=== PATIENT | male | born 1945 | race Caucasian/White ===

== ENCOUNTER 2018-03-18 07:48 | Inpatient (IN) ==
[2018-02-17 12:08] LABS: Basophils # (auto) 0.04 K/uL (0-0.2); Basophils % (auto) 0.4 %; Eosinophils # (auto) 0.32 K/uL (0-0.5); Eosinophils % (auto) 3.1 %; Hematocrit (blood only) 41.1 % (42-52); Hemoglobin 14.6 g/dL (14.0-18.0); Immature Granulocytes # (auto) 0.05 K/uL (0.00-0.02); Immature Granulocytes % (auto) 0.5 %; Lymphocytes # (auto) 1.49 K/uL (1.2-3.4); Lymphocytes % (auto) 14.6 %; Mean Corpuscular Hgb Conc 35.5 g/dL (32-36); Mean Corpuscular Volume 86.5 fL (80-100); Monocytes # (auto) 0.91 K/uL (0.11-0.59); Monocytes % (auto) 8.9 %; Neutrophils # (auto) 7.43 K/uL (1.4-6.5); Neutrophils % (auto) 72.5 %; Platelet Count 213 K/uL (130-400); RDW Coefficient of Variation 13.2 % (11.5-14.5); RDW Standard Deviation 41.5 fL (36.4-46.3); Red Blood Count 4.75 M/uL (4.7-6.1); White Blood Count 10.24 K/uL (4.8-10.8)
[2018-02-17 12:24] LABS: INR 1.1 (0.9-1.1); Partial Thromboplastin Time 25.2 Seconds (21.0-31.0); Prothrombin Time 11.4 Seconds (9.0-12.0)
[2018-03-19 06:14] LABS: Hemoglobin 11.3 g/dL (14.0-18.0); Mean Corpuscular Hgb Conc 35.3 g/dL (32-36); Mean Corpuscular Volume 85.8 fL (80-100); Mean Platelet Volume 9.6 fL (7.4-10.4); Platelet Count 180 K/uL (130-400); RDW Coefficient of Variation 12.8 % (11.5-14.5); RDW Standard Deviation 39.9 fL (36.4-46.3); Red Blood Count 3.73 M/uL (4.7-6.1); White Blood Count 13.03 K/uL (4.8-10.8)
[2018-03-19 06:19] LABS: Estimated Average Glucose 151 mg/dl
[2018-03-19 06:50] LABS: BUN Creatinine Ratio 18.2 (10-20); Calcium 8.2 mg/dl (8.5-10.1); Creatinine Clr Calc Pharmacy 55.9 ml/min; Est GFR (African American) 68.5; Est GFR (Non-African American) 59.1; Potassium 3.5 mmol/L (3.5-5.1)
== END 2018-03-20 10:14 | disposition home health service (06) ==
LOC: ASU 07:48 → 3E 13:03

== ENCOUNTER 2018-06-20 08:11 | Inpatient (IN) ==
--- NOTE | 2018-05-29 14:02 | Anesthesiology Consultation ---
Date of Service May 29, 2018 Assessment & Plan (1) Encounter for pre-operative examination: Chart Review Chart Review: Acceptable Risk for Surgery and Patient NOT seen in Pre Admission Testing Consults Requested none History Surgery Operation Date: 06/20/18 12:30 Proposed Procedures p Left Total Knee Arthroplasty - Rm Madden MD Height/Weight Height: 1.75 m Weight: 84.8 kg Allergies Allergy/AdvReac Type Severity Reaction Status Date / Time Penicillins Allergy SYNCOPAL Verified 05/28/18 15:10 EPISODE, OCCURED A CHILD Medications Home Medications Medication Instructions Recorded Confirmed Last Taken albuterol sulfate 2 puff INHALATION Q6H PRN 02/10/18 05/28/18 03/15/18 12:00 atenolol 50 mg PO QAM 02/10/18 05/28/18 03/18/18 06:00 atorvastatin [Lipitor] 10 mg PO QAM 02/10/18 05/28/18 03/18/18 06:00 fluticasone propion-salmeterol 1 inh INHALATION HS 02/10/18 05/28/18 03/17/18 19:30 [Advair Diskus] metformin 500 mg PO BID 02/10/18 05/28/18 03/17/18 19:30 potassium chloride 10 meq PO QAM 02/10/18 05/28/18 03/17/18 06:00 lutein 20 mg PO QAM 02/17/18 05/28/18 02/17/18 06:00 losartan-hydrochlorothiazide 1 tab PO DAILY 03/18/18 05/28/18 Unknown Past Medical History Medical History Asthma Diabetes mellitus, type 2 History of prostate cancer S/P PROSTATECTOMY IN 2013 Hyperlipidemia Hypertension Osteoarthritis Past Surgical History Surgical History History of colonoscopy History of lung biopsy History of prostatectomy 2013 History of total knee replacement RIGHT 03/18/18: SAB + PNB without apparent complications Past Anesthesia History No Hx of Anesthesia Complications and No Family Hx of Anesthesia Complications History of PONV No Motion Sickness Screening History of Motion Sickness: No Social History Smoking Status: Never smoker Do You Dip or Chew Tobacco: No Hx Alcohol Use: No Alcohol Intake Frequency Comment: 0 Hx Substance Use: No substance use type: does not use Exercise / Class Metabolic Activity II 4-5 Yardwork/Stairs/Walk up hill Testing Electrocardiogram Date: 02/17/18 Findings: + NSR @ (71 bpm) Chest X-Ray Date: 02/17/18 Findings: + NAD IMPRESSION: 1. No acute cardiopulmonary findings. 2. Bandlike density projecting over the upper heart on lateral projection which favors atelectasis or scar. Laboratory Results Laboratory Tests 03/19/18 05/22/18 05/22/18 06:00 10:57 10:57 WBC 11.39 H Hgb 13.4 L Hct 38.0 L Plt Count 241 PT 10.9 INR 1.1 APTT 24.3 Sodium Potassium Chloride Carbon Dioxide BUN Creatinine Glucose Hemoglobin A1c 6.9 H 05/22/18 10:57 WBC Hgb Hct Plt Count PT INR APTT Sodium 139 Potassium 4.2 Chloride 106 Carbon Dioxide 26 BUN 46 H Creatinine 2.27 H Glucose 252 H Hemoglobin A1c
--- NOTE | 2018-06-14 12:36 | History and Physical Report ---
DATE OF ADMISSION: 06/20/2018 CHIEF COMPLAINT: Left knee pain, discomfort and stiffness. HISTORY OF PRESENT ILLNESS: The patient is a 72-year-old gentleman from [place], who is now about 3 months out from right knee replacement, presents for surgical treatment of his left knee. He has got a long history of knee problems. He has been through extensive conservative treatment. His knee has been bothering over a total of years. He has had his right knee fixed just about 3 months ago and has done well from this. He continues to be limited by his left knee pain. He limps on this left side. The more he walks, the more it hurts. It causes nighttime pain. He has failed all conservative care and would like to proceed with left knee replacement. PAST MEDICAL HISTORY: 1. Asthma. 2. Diabetes x4 years. 3. Arthritis. 4. Low back pain/sciatica. 5. Prostate cancer. PAST SURGICAL HISTORY: Previous surgeries include: 1. Prostate surgery. 2. Left knee replacement 03/18/2018. ALLERGIES: PENICILLIN, REACTIONS UNKNOWN. CURRENT MEDICINES: Include: 1. ProAir. 2. Advair 4 puffs per day. 3. Baby aspirin 81 mg. 4. Lipitor 10 mg. 5. Losartan once a day. 6. Metformin 500 mg twice a day. 7. Potassium chloride 10 mEq a day. 8. Atenolol 50 mg. 9. Aleve. 10. Lisinopril/hydrochlorothiazide 20/12.5 once a day. SOCIAL HISTORY: A 72-year-old male patient from [place]. He is . Does not smoke. FAMILY HISTORY: Noncontributory. REVIEW OF SYSTEMS: Significant for fairly well-controlled diabetes. Denies any chest pain or shortness of breath. No signs of DVT or PE. No known bleeding problems. PHYSICAL EXAMINATION: GENERAL: Shows a pleasant, middle-aged male. Looks to be in good health. HEENT: Benign. NECK: Supple. No lymphadenopathy. LUNGS: Clear to auscultation. HEART: Regular rate and rhythm. ABDOMEN: Soft, nontender, nondistended. EXTREMITIES: Grossly neurovascularly intact except as follows: Examination of the left knee reveals patient ambulates independently. He does have slight varus alignment to his left knee. He has got tenderness over the medial joint line. Small knee effusion. Range of motion about 10 degrees short of full extension to 110 degrees of flexion. He does have varus thrust with weightbearing. He is neurologically intact. Examination of the right knee reveals a well-healed incision. Range of motion is 0-120. Good straight leg raise. X-RAYS: X-rays of the left knee reviewed. It shows advanced left knee medial compartment DJD. He has got complete loss of his medial joint space. He has got some tibial femoral subluxation. He has got subchondral sclerosis. He does have some lateral compartment disease as well. ASSESSMENT: A 72-year-old gentleman 3 months out from right knee replaced with advanced left knee degenerative joint disease. He has done well from the right side and would like to have his left knee replaced. PLAN: We will take him to the operating room and do a left total knee replacement. The risks and benefits of this procedure were explained to the patient include but not limited to DVT, PE, , infection, neurological injury, vascular injury, bleeding problem, pain, limited range of motion, stiffness, failure to relieve symptoms, incomplete relief of symptoms, need for further surgery in future, etc. The patient understands and desires to proceed. Informed consent was obtained. As far as pain control, he did not do well in the oxycodone and Dilaudid worked better for him, we will try and use this in the hospital. He knows to hold his Metformin and lisinopril the morning of surgery. He is planning to be discharged to home using the home health program.
[~2018-06-20 08:11] MED LIST: ACETAMINOPHEN 500 MG TAB PO SCH; BUPIVACAINE 0.5 % 5 MG/1 ML PF 10ML VIAL ONE; BUPIVACAINE LIPOSOME/PF 266 MG, BUPIVACAINE/EPINEPHRINE 50 ML, SODIUM CHLORIDE 0.9% 30 ... INFIL SCH; CEFAZOLIN 2000MG 2,000 MG/15 ML SYR IV SCH; FAMOTIDINE 20 MG TAB PO SCH; GABAPENTIN 300 MG PO SCH; LR 15ML/HR IV SCH; LR 60ML/HR IV SCH; METOCLOPRAMIDE HCL 10 MG TABLET PO SCH; ROPIVACAINE 0.5% 5 MG/ML 30 ML VIAL ONE; SODIUM CHLORIDE 0.9% 1000ML IV SCH; TRANEXAMIC ACID 1,000 MG **IV Intra-op IV SCH
--- NOTE | 2018-06-20 08:54 | History & Physical Bridge Note ---
Date of Service June 20, 2018 History & Physical Bridge Note I have examined the patient, reviewed the History & Physical and in the interval since the performance of the History & Physical I have noted the following changes of clinical significance: no changes noted
[2018-06-20] MEDS ORDERED: SODIUM CHLORIDE 0.9% PF 50 ML VIAL ONE (10:22)
[2018-06-20] MEDS ORDERED: BUPIVACAINE LIPOSOME 1.3% 266 MG/20 ML VIAL ONE (10:22)
[2018-06-20] MEDS ORDERED: BACITRACIN INJ 50,000 UNIT VIAL ONE (10:23)
[2018-06-20] MEDS ORDERED: MIDAZOLAM HCL 1 MG/ML 2ML VIAL ONE (10:26)
[2018-06-20] MEDS ORDERED: EPINEPHrine INJ 1 MG/ML AMP ONE (10:29)
[2018-06-20] MEDS ORDERED: BUPIVACAINE 0.25% 30 ML VIAL ONE (10:29)
[2018-06-20] MEDS ORDERED: ONDANSETRON INJ 2 MG/ML 2 ML VIAL ONE (10:50)
[2018-06-20] MEDS ORDERED: PROPOFOL IV EMULSION 10 MG/ML 20 ML VIAL IV ONE (10:50)
[2018-06-20] MEDS ORDERED: fentaNYL citrate 100 MCG/2 ML VIAL ONE ×3 (10:50→11:01)
[2018-06-20] MEDS ORDERED: LIDOCAINE HCL 2% 2 ML VIAL/AMP(20MG/ML) INFIL ONE (10:50)
[2018-06-20] MEDS ORDERED: ePHEDrine sulfate 50 MG/ML AMP IV PRN (10:51)
[2018-06-20] MEDS ORDERED: ATROPINE SULFATE 0.1 MG/ML 10ML SYR IV PRN (10:51)
[2018-06-20] MEDS ORDERED: PHENYLEPHRINE 100MCG/ML 5ML SYR ONE (12:09)
--- NOTE | 2018-06-20 12:16 | Post Operative Brief Note ---
Immediate Post Op Note v1 Date of Surgery June 20, 2018 Pre & Post Diagnosis Operation Date: 06/20/18 10:40 Pre-Op Diagnosis: Left Knee Degenerative Joint Disease, Knee Pain Post-Op Diagnosis: Left Knee Degenerative Joint Disease, Knee Pain Procedure Operation Date: 06/20/18 10:40 Actual Procedures p Left Total Knee Arthroplasty(Left) - Rm Madden MD Surgeon Rm Madden MD Rum Processing Operator Pb, PAC Estimated Blood Loss 50 Findings Consistent with Post-Op Diagnosis Fluids 1600 cc Specimens Left Knee Drains Daniels Catheter Anesthesia Type Spinal MAC Complications none Disposition Accompanied Patient To Recovery: No Disposition: Recovery Room
--- NOTE | 2018-06-20 13:32 | Anesthesiology Progress Note ---
Date of Service June 20, 2018 Anesthesia Post Procedure Vital Signs Vital Signs: Temp Pulse Pulse Resp BP BP Pulse Ox 06/20/18 13:25 67 15 98/68 L 98 06/20/18 13:15 36.7 C 73 16 104/64 99 06/20/18 13:05 72 15 102/62 97 06/20/18 13:00 72 12 100/67 98 06/20/18 12:55 72 18 101/67 99 06/20/18 12:51 74 23 99/67 L 99 06/20/18 12:50 70 16 100 06/20/18 12:45 69 13 100/66 99 06/20/18 12:40 71 13 98/68 L 100 06/20/18 12:35 69 22 105/68 100 06/20/18 12:31 70 16 92/68 L 100 06/20/18 12:30 63 22 99 06/20/18 12:25 73 17 102/65 100 06/20/18 12:23 36.2 C L 72 73 24 96/64 L 96/64 L 100 06/20/18 12:22 76 18 100 06/20/18 08:39 36.8 C 82 18 136/83 97 Notes Mental Status: alert / awake / arousable and participated in evaluation Patient Amnestic to Procedure: Yes Nausea / Vomiting: adequately controlled Pain: adequately controlled Airway Patency, RR, SpO2: stable & adequate BP & HR: stable & adequate Hydration State: stable & adequate Neuraxial Anesthesia: was administered and sensory block is resolving Anesthetic Complications: no major complications apparent
--- NOTE | 2018-06-20 13:33 | XRay Report ---
XR knee LT 2V routine CLINICAL HISTORY: Surgical Post Op COMPARISON: Knee radiographs January 02, 2018. FINDINGS: Alignment of the total left knee arthroplasty is anatomic. There is no fracture or unexpec eleazar radiopaque foreign body. There are skin zach. IMPRESSION: Expected findings following total left knee arthroplasty. Electronically signed by: Saad Jacobson M.D. 06/20/2018 1:32 PM
[2018-06-20] MEDS ORDERED: METOCLOPRAMIDE HCL INJ 5 MG/ML 2 ML VIAL IV PRN (13:53)
[2018-06-20] MEDS ORDERED: SODIUM CHLORIDE 0.9% 1000ML 1,000 ML IV SCH (13:53)
[2018-06-20] MEDS ORDERED: GLUCOSE 10 TABS/TUBE PO PRN (13:53)
[2018-06-20] MEDS ORDERED: ALBUTEROL HFA 8 GM INHALER INH PRN (13:53)
[2018-06-20] MEDS ORDERED: DEXTROSE 50% 50 ML SYRINGE IV PRN (13:53)
[2018-06-20] MEDS ORDERED: PHARMACY GLYCEMIC MGMT CONSULT STA (13:53)
[2018-06-20] MEDS ORDERED: GLUCAGON FOR INJ 1 MG VIAL SQ PRN (13:53)
[2018-06-20] MEDS ORDERED: GLUCOSE 40% GEL 15 GM TUBE PO PRN (13:53)
[2018-06-20] MEDS ORDERED: TAMSULOSIN HCL 0.4 MG CAP PO PRN (13:53)
[2018-06-20] MEDS ORDERED: MAGNESIUM HYDROXIDE SUSP 30 ML UDC PO PRN (13:53)
[2018-06-20] MEDS ORDERED: ONDANSETRON INJ 2 MG/ML 2 ML VIAL IV PRN (13:53)
[2018-06-20] MEDS ORDERED: NALOXONE HCL 0.4 MG/1 ML VIAL/CARP IV PRN (13:53)
[2018-06-20] MEDS ORDERED: CARBOHYDRATES FOR HYPOGLYCEMIA PO PRN (13:53)
[2018-06-20] MEDS ORDERED: HYDROmorphone INJ 0.5 MG/0.5 ML SYR IV PRN (13:53)
[2018-06-20] MEDS ORDERED: ALUMINUM/MAGNESIUM SUSP 30 ML UDC PO PRN (13:53)
[2018-06-20] MEDS ORDERED: BISACODYL 10 MG SUPP PR PRN (13:53)
[2018-06-20] MEDS: ACETAMINOPHEN 500 MG TAB PO SCH ×2 (14:21→21:35)
[2018-06-20] MEDS ORDERED: PHARMACY GLYCEMIC MGMT CONSULT PRN (14:27)
--- NOTE | 2018-06-20 14:47 | Pharmacy Report ---
Glycemic Control Consultation - Date of Service June 20, 2018 - Scope Scope: Glycemic Pharmacist consulted by Dr Madden on 06-20-18 for glycemic control and to write orders per [facility] inpatient glycemic control protocol - Objective Weight: 83.461 kg Accuchecks BSG (last 24hrs): 06/20/18 06/20/18 08:48 12:27 POC Glucose 164 H 121 H - Recent Pertinent Medications Outpatient Anti-diabetic Regimen: * metformin 500 mg bidm * A1c = 6.9 % [1-16-19] Risk Factors for Insulin Resistance: * Steroids: none * Recent Surgery: POD 0 * Diet: T2DM - Assessment & Plan Assessment & Plan: ASSESSMENT: * 72 year old male now s/p left TKA - PMHx significant for type 2 diabetes, asthma, arthritis, prostate cancer * Patient POD 0, now starting diet postop, no steroids received in OR * Will utilize basal/bolus dosing postop for glycemic management PLAN FOR INPATIENT GLYCEMIC CONTROL: * Pt is maintained on oral antidiabetic agents as an outpatient * Oral agents are not recommended for inpatient use d/t drug interactions, changing PO intake, and difficulty titrating for acute hyper/hypoglycemia. ADA recommends re-initiating outpatient oral agents 1-2 days prior to discharge if/when appropriate if they were held on admission. * Will hold oral agents for admission and utilize SQ basal bolus insulin regimen which is the recommended regimen for inpatient glycemic control. * Will initiate weight based insulin dosing for insulin arsalan patient and titrate based on BSG trends. * Basal insulin * Lantus HS with scale -For BSG < 180 : no lantus -For BSG >180 : lantus 10 units (chose conservative dose since no steroids given) * Bolus insulin - add one overnight check * NovoLog per scale ACHS or Q6hrs while NPO * Goal Range: Low 120 mg/dL - High 160 mg/dL * Correction Factor: 30 mg/dL/unit * Nutritional / Prandial insulin per carb ratio of 1 unit per 12 grams CHO c onsumed * Please note that the plan above was derived based on current level of insulin resistance and hospital stress. These recommendations are appropriate for inpatient admission only. Plan of care upon discharge will need to be reassessed to avoid potential outpatient hypo/hyperglycemia. Thank you.
[2018-06-20] MEDS: KETOROLAC TROMETHAMINE 15 MG/ML VIAL IV SCH ×2 (15:31→22:15)
--- NOTE | 2018-06-20 15:31 | Progress Note ---
DATE: 06/20/2018 SUBJECTIVE: 72-year-old gentleman postop from a left knee replacement. He is doing well. Does not have any sensation or function in his leg yet. No chest pain or shortness of breath. Not feeling dizzy or lightheaded. OBJECTIVE: VITAL SIGNS: Temperature 36.5. Vital signs stable. PHYSICAL EXAMINATION: GENERAL: Reveals a pleasant, middle-aged male. He is sitting up in bed and talking to his . He looks comfortable. LUNGS: Clear to auscultation. HEART: Regular rate and rhythm. ABDOMEN: Soft, nontender, nondistended. EXTREMITIES: Grossly neurovascularly intact except as follows: Examination of the left leg reveals the leg to be well aligned. Dressing is clean, dry, and intact. He has got good distal pulse with pink toes. He has no significant sensory or motor function in the leg yet. X-RAYS: X-ray of the left knee from recovery room were reviewed. It shows a left cemented posterior right total knee arthroplasty. Components look to be in good position. No signs of problems. ASSESSMENT: 72-year-old gentleman postop from a left knee replacement. He is doing well. Block is still in effect. He is otherwise vascularly intact. PLAN: 1. DVT prophylaxis including thigh-high TEDs, SCDs, and aspirin twice a day. 2. PT/OT. Weight bear as tolerated. Left total knee protocol. 3. Pain control, doing well with current pain regimen. We are going to use Dilaudid for pain control as he did better with that after his last knee replacement. We will also use Tylenol and some low dose Toradol. We will have to keep an eye on his renal function. 4. IV antibiotics x24 hours. 5. Disposition: Plan to discharge to home with some home health once adequately recovered.
[2018-06-20] MEDS: HYDROmorphone HCL 2 MG TAB PO PRN (17:10)
[2018-06-20] MEDS: INSULIN ASPART 100 UNITS/ML 3 ML PEN SC SCH ×2 (18:01→22:07)
[2018-06-20] MEDS: ASCORBIC ACID 500 MG TAB PO SCH (18:01)
[2018-06-20] MEDS: FERROUS GLUCONATE 324 MG TAB PO SCH (18:01)
[2018-06-20] MEDS ORDERED: TRANEXAMIC ACID 1,000 MG in 0.9 % SODIUM CHLORIDE 100 ML IV SCH (18:30)
[2018-06-20] MEDS: CEFAZOLIN 2000MG 2,000 MG/15 ML SYR IV SCH (19:01)
[2018-06-20] MEDS: FLUTICASONE/SALMETEROL 250/50 (ADVAIR) 14 PUFF/1 INHALER INH SCH (20:39)
[2018-06-20] MEDS: TAPENTADOL HCL ER 50 MG TABCR PO SCH (20:39)
[2018-06-20] MEDS: DOCUSATE SODIUM 100 MG CAP PO SCH (20:40)
[2018-06-20] MEDS: SENNA 8.6 MG TAB PO SCH (20:40)
[2018-06-20] MEDS: ASPIRIN 81 MG ECTAB PO SCH (20:40)
[2018-06-20] MEDS ORDERED: LANTUS PER UNIT CHARGE SQ SCH (21:00)
--- NOTE | 2018-06-20 22:18 | Operative Report ---
DATE OF OPERATION: 06/20/2018 SURGEON: Rm Madden MD REBEAMER: NENITA Cope PREOPERATIVE DIAGNOSIS: Left knee degenerative joint disease. POSTOPERATIVE DIAGNOSIS: Left knee degenerative joint disease. PROCEDURE PERFORMED: Left cemented posterior stabilized total knee arthroplasty. COMPLICATIONS: None. ESTIMATED BLOOD LOSS: 50 mL. FLUID REPLACEMENT: 1600 mL of crystalloid fluid replacement. TOURNIQUET TIME: 56 minutes at 300 mmHg. ANESTHESIA: Spinal with adductor canal block. DRAINS: None. SPECIMENS: Left knee sent for pathology. OPERATIVE INDICATIONS: The patient is a 72-year-old fairly active gentleman who has had a long history of bilateral knee pain and discomfort. He has been through extensive conservative treatment in the past. X-rays show advanced DJD. He underwent a right knee replacement 3 months ago, has done well from this. He continued to be limited by his left knee pain. He elected to proceed with total knee arthroplasty. OPERATIVE FINDINGS: Operative findings revealed advanced left knee DJD. He had extensive grade 4 [id number] disease with eburnation of the entire medial compartment. He had osteophytes primarily in the medial compartment. He had a fixed varus deformity to his knee and a 10 degree flexion contracture with large knee joint effusion. OPERATIVE IMPLANTS: Operative implants consisted of: 1. Biomet Vanguard size 67.5 left posterior stabilized femoral component. 2. A Biomet size 75 tibial tray. 3. A 10 mm posterior stabilized polyethylene insert. 4. A 31 x 8 all poly patella. OPERATIVE PROCEDURE: The patient taken to the operating room, identified and placed on the operative table in supine position. All contact areas were appropriately padded. IV antibiotics were provided by anesthesia team. A spinal anesthetic and adductor canal block had been provided in the holding area. Daniels catheter was placed in sterile fashion. Left tourniquet was then placed and left lower extremity was then prepped and draped in usual sterile fashion. Left leg was elevated and exsanguinated with Esmarch and tourniquet placed at 300 mmHg. An anterior approach to the left knee was then performed through a longitudinal incision centered over the patella. Sharp dissection was carried through subcutaneous tissue down to the level of the extensor mechanism. Medial parapatellar arthrotomy incision was made. Some subperiosteal dissection was carried out medially. The fat pad resected from beneath the patellar tendon. The lateral patellofemoral ligament was released. The patella was everted and knee was flexed. The osteophytes were taken off the distal femur. The ACL and PCL were then released from the distal femur and the tibia subluxated anteriorly. The external tibial alignment jig was then placed in the anterior face of the tibia and adjusted about 16 mm medially. Proximal tibial cut was made to remove essentially and flushed with the very most deficient aspect of the medial tibial plateau. I did take a fairly large piece off laterally. Some osteophytes were removed medial and posteromedially. Tibia sized to a size 75. Attention was then drawn to the femur. The distal femur was entered with a sharp drill bit. Intramedullary canal was suctioned. The left 6-degree valgus cutting guide was placed. Distal femoral cutting block was pinned in place. Distal femoral cut was made to take an additional 3 mm bone off distal femur. The femur was then sized to a size 67.5. We downsized this just slightly. The AP cutting block was pinned parallel to the epicondylar axis, which was 4 degrees of external rotation. The anterior cut, anterior chamfer cut, posterior cut, posterior chamfer cuts were made. Box cutting guide was placed it just slightly lateral, and the box cut was made. The knee was flexed. The remnants of medial and lateral menisci were excised. The osteophytes were taken off the posterior aspect of the femur. Trial femoral component was placed. Tibial tray was pinned in maximum external rotation and the drill and stem punch were used to create defect in the tibia for the tibial tray. The knee was then trialed and a 10 mm insert fit most appropriately. Attention was then drawn to patella. The patella was cleaned of all soft tissues. Patella thickness measured 25 mm in thickness was cut down to 15. It was sized to a size 31 patella. Lug holes were drilled for a 31 patella. Lateral osteophyte was removed. Patella button was placed. Knee was taken through range of motion, patella tracked nicely with no thumbs test. Attention was then drawn toward placement of the permanent components. All trial components were removed. Bone plug was placed into the distal femur to limit blood loss. A double batch of Palacos G cement was mixed. A Biomet Vanguard size 67.5 posterior stabilized femoral component, size 75 tibial tray, 10 mm posterior stabilized polyethylene insert, and a 31 x 8 all poly patella then cemented in place. Knee was brought out into full extension until cement hardened. A final cement check was then performed. Pericapsular tissues were injected with a total of 100 mL of a combination of 20 mL of Exparel, 30 mL of normal saline, 50 mL of 0.25% Marcaine with epinephrine. The patient did receive 1 gram of tranexamic acid. The tourniquet was then let down for final tourniquet time of 56 minutes. Hemostasis was assured with use of electrocautery. The extensor mechanism was then closed with a combination of #1 PDS suture and #1 Vicryl suture in a smhwow-ds-tkeor fashion. Extensor mechanism was checked and found to be intact. The subcutaneous tissues were then closed with #2 Dexon suture in a buried interrupted fashion. Skin was closed with skin zach. Leg was then cleaned and dried and a sterile dressing of Xeroform, 4 x 4's, sterile cast and Vic bandage were applied. The patient transferred to the recovery room in stable condition. The patient tolerated the procedure well with no complication. All needle and sponge counts were correct at the end of the operation. I attest to the content of the Intraoperative Record and any orders documented therein. Any exceptions are noted below. CLINT
[2018-06-21] MEDS ORDERED: INSULIN ASPART 100 UNITS/ML 3 ML PEN SC SCH
[2018-06-21] MEDS: KETOROLAC TROMETHAMINE 15 MG/ML VIAL IV SCH (02:58)
[2018-06-21] MEDS: CEFAZOLIN 2000MG 2,000 MG/15 ML SYR IV SCH (02:58)
[2018-06-21] MEDS: ACETAMINOPHEN 500 MG TAB PO SCH ×3 (06:10→21:16)
[2018-06-21 06:36] LABS: Hematocrit (blood only) 31.9 % (42-52); Hemoglobin 11.3 g/dL (14.0-18.0); Mean Corpuscular Hgb Conc 35.4 g/dL (32-36); Mean Corpuscular Volume 83.7 fL (80-100); Mean Platelet Volume 9.1 fL (7.4-10.4); Platelet Count 156 K/uL (130-400); RDW Coefficient of Variation 12.9 % (11.5-14.5); Red Blood Count 3.81 M/uL (4.7-6.1); White Blood Count 9.62 K/uL (4.8-10.8)
[2018-06-21 07:03] LABS: BUN Creatinine Ratio 17.6 (10-20); Calcium 8.6 mg/dl (8.5-10.1); Creatinine Clr Calc Pharmacy 42.4 ml/min; Est GFR (African American) 49.1; Est GFR (Non-African American) 42.4; Potassium 3.3 mmol/L (3.5-5.1)
[2018-06-21] MEDS: HYDROmorphone HCL 2 MG TAB PO PRN ×4 (07:48→21:13)
[2018-06-21] MEDS ORDERED: POTASSIUM CHLORIDE 20 MEQ TABCR PO ONE ×2 (08:24→18:26)
--- NOTE | 2018-06-21 08:44 | Progress Note ---
DATE: 06/21/2018 SUBJECTIVE: A 72-year-old gentleman postop day 1 from a left knee replacement. Had a pretty good night. Slept well. Pain was controlled. Having a little bit more pain this morning. No chest pain or shortness of breath. Not feeling dizzy or lightheaded. OBJECTIVE: VITAL SIGNS: Temperature 36.9. Vital signs stable. GENERAL: Physical examination shows a pleasant, middle-aged male. He is sitting up in bed, looks comfortable. EXTREMITIES: Examination of the left leg reveals the dressing to be clean, dry, and intact. He can dorsiflex and plantarflex his foot appropriately. He is neurologically intact. LABORATORY DATA: Hemoglobin 11.3. Hematocrit 31.9. Electrolytes show increased creatinine of 1.62. Potassium is low at 3.3. ASSESSMENT: A 72-year-old gentleman postop day 1 from a left knee replacement, doing pretty well. Pain is controlled. Creatinine is bumped up and he has had some of the kidney issues in the past. PLAN: 1. DVT prophylaxis including thigh-high TEDs, SCDs, and aspirin twice a day. 2. PT/OT. Weight bear as tolerated. Left total knee protocol. 3. Pain control, doing pretty well with current pain regimen. He is doing better with he prefers Dilaudid. We are going to continue Tylenol, but we are going to stop the Toradol due to his creatinine. We will supplement his potassium. 4. Disposition: Plan to discharge to home with home health once adequately recovered.
[2018-06-21] MEDS ORDERED: NON-FORMULARY MEDICATION (Lutein 20 MG) PO SCH (09:00)
[2018-06-21] MEDS: ATORVASTATIN 10 MG TAB PO SCH (09:19)
[2018-06-21] MEDS: ATENOLOL 50 MG TABLET PO SCH (09:19)
[2018-06-21] MEDS: DOCUSATE SODIUM 100 MG CAP PO SCH ×2 (09:19→21:15)
[2018-06-21] MEDS: TAPENTADOL HCL ER 50 MG TABCR PO SCH ×2 (09:19→21:24)
[2018-06-21] MEDS: ASCORBIC ACID 500 MG TAB PO SCH ×2 (09:20→18:27)
[2018-06-21] MEDS: ASPIRIN 81 MG ECTAB PO SCH ×2 (09:20→21:15)
[2018-06-21] MEDS: POTASSIUM CHLORIDE 10 MEQ TABCR PO SCH (09:20)
[2018-06-21] MEDS: LOSARTAN/HCTZ 50/12.5MG TAB PO SCH (09:20)
[2018-06-21] MEDS: FERROUS GLUCONATE 324 MG TAB PO SCH ×2 (09:20→18:27)
[2018-06-21] MEDS: MULTIVITAMIN TAB PO SCH (09:20)
[2018-06-21] MEDS: INSULIN ASPART 100 UNITS/ML 3 ML PEN SC SCH ×4 (09:21→21:20)
--- NOTE | 2018-06-21 10:09 | Anesthesiology Progress Note ---
Date of Service June 21, 2018 Anesthesia Post Procedure Vital Signs Vital Signs: Temp Pulse Pulse Pulse Resp BP BP 06/21/18 07:06 36.9 C 68 19 132/83 06/21/18 03:00 36.9 C 73 14 136/78 06/20/18 23:51 36.8 C 69 14 114/71 06/20/18 19:50 36.9 C 71 18 121/77 06/20/18 16:45 36.6 C 68 18 95/62 L 06/20/18 15:48 36.7 C 70 18 113/69 06/20/18 15:30 06/20/18 14:49 36.5 C 72 17 109/65 06/20/18 14:16 70 17 106/69 06/20/18 13:45 37 C 72 16 112/71 06/20/18 13:35 67 15 105/61 06/20/18 13:25 67 15 98/68 L 06/20/18 13:15 36.7 C 73 16 104/64 06/20/18 13:05 72 15 102/62 06/20/18 13:00 72 12 100/67 06/20/18 12:55 72 18 101/67 06/20/18 12:51 74 23 99/67 L 06/20/18 12:50 70 16 06/20/18 12:45 69 13 100/66 06/20/18 12:40 71 13 98/68 L 06/20/18 12:35 69 22 105/68 06/20/18 12:31 70 16 92/68 L 06/20/18 12:30 63 22 06/20/18 12:25 73 17 102/65 06/20/18 12:23 36.2 C L 72 73 24 96/64 L 96/64 L 06/20/18 12:22 76 18 Pulse Ox 06/21/18 07:06 95 06/21/18 03:00 98 06/20/18 23:51 97 06/20/18 19:50 96 06/20/18 16:45 95 06/20/18 15:48 96 06/20/18 15:30 97 06/20/18 14:49 97 06/20/18 14:16 97 06/20/18 13:45 99 06/20/18 13:35 99 06/20/18 13:25 98 06/20/18 13:15 99 06/20/18 13:05 97 06/20/18 13:00 98 06/20/18 12:55 99 06/20/18 12:51 99 06/20/18 12:50 100 06/20/18 12:45 99 06/20/18 12:40 100 06/20/18 12:35 100 06/20/18 12:31 100 06/20/18 12:30 99 06/20/18 12:25 100 06/20/18 12:23 100 06/20/18 12:22 100 Pain Intensity Left Knee: Pain Intensity: 7 Notes Mental Status: alert / awake / arousable and participated in evaluation Nausea / Vomiting: adequately controlled Pain: adequately controlled Airway Patency, RR, SpO2: stable & adequate BP & HR: stable & adequate Hydration State: stable & adequate
[2018-06-21] MEDS ORDERED: INSULIN GLARGINE SOLOSTAR 100 UNITS/ML 3 ML PEN SC ONE (16:45)
[2018-06-21] MEDS ORDERED: INSULIN GLARGINE SOLOSTAR 100 UNITS/ML 3 ML PEN SC SCH (21:00)
[2018-06-21] MEDS ORDERED: LANTUS PER UNIT CHARGE SQ SCH (21:00)
[2018-06-21] MEDS: FLUTICASONE/SALMETEROL 250/50 (ADVAIR) 14 PUFF/1 INHALER INH SCH (21:14)
[2018-06-21] MEDS: SENNA 8.6 MG TAB PO SCH (21:15)
[2018-06-22] MEDS: HYDROmorphone HCL 2 MG TAB PO PRN ×3 (01:16→10:15)
[2018-06-22] MEDS: ACETAMINOPHEN 500 MG TAB PO SCH (06:06)
[2018-06-22 06:32] LABS: BUN Creatinine Ratio 17.8 (10-20); Calcium 8.9 mg/dl (8.5-10.1); Creatinine Clr Calc Pharmacy 65.5 ml/min; Est GFR (Non-African American) 71.6; Potassium 3.6 mmol/L (3.5-5.1)
[2018-06-22] MEDS: ATORVASTATIN 10 MG TAB PO SCH (08:13)
[2018-06-22] MEDS: FERROUS GLUCONATE 324 MG TAB PO SCH (08:13)
[2018-06-22] MEDS: DOCUSATE SODIUM 100 MG CAP PO SCH (08:13)
[2018-06-22] MEDS: ATENOLOL 50 MG TABLET PO SCH (08:13)
[2018-06-22] MEDS: MULTIVITAMIN TAB PO SCH (08:13)
[2018-06-22] MEDS ORDERED: KETOROLAC TROMETHAMINE 15 MG/ML VIAL IV SCH (08:15)
[2018-06-22] MEDS: ASCORBIC ACID 500 MG TAB PO SCH (08:17)
[2018-06-22] MEDS: LOSARTAN/HCTZ 50/12.5MG TAB PO SCH (08:17)
[2018-06-22] MEDS: ASPIRIN 81 MG ECTAB PO SCH (08:17)
[2018-06-22] MEDS: POTASSIUM CHLORIDE 10 MEQ TABCR PO SCH (08:18)
[2018-06-22] MEDS: TAPENTADOL HCL ER 50 MG TABCR PO SCH (08:20)
[2018-06-22] MEDS: INSULIN ASPART 100 UNITS/ML 3 ML PEN SC SCH (09:03)
--- NOTE | 2018-06-22 09:09 | Progress Note ---
DATE: 06/22/2018 SUBJECTIVE: A 72-year-old gentleman postop day 2 from left knee replacement. He is doing okay. Having some pain but doing okay with the pain meds. No chest pain or shortness of breath. Not feeling dizzy or lightheaded. OBJECTIVE: VITAL SIGNS: Temperature 37.2. Vital signs stable. GENERAL: Physical examination reveals a pleasant, middle-aged male. He is sitting up in his bedside chair, looks pretty comfortable. EXTREMITIES: Examination of the left leg reveals the dressing to be clean, dry, and intact. His calf is soft and supple. Not much swelling. He can dorsiflex and plantarflex his foot appropriately. LABORATORY DATA: Creatinine is back down to normal at 1.05. ASSESSMENT: A 72-year-old gentleman postop day 2 from a left knee replacement, doing reasonably well. His pain is reasonably well controlled. Creatinine is back to normal. PLAN: 1. DVT prophylaxis including thigh-high TEDs, SCDs, and aspirin twice a day. 2. PT/OT. Weight bear as tolerated. Left total knee protocol. 3. Pain control. Doing okay with current pain regimen. We may give him a little bit more Toradol now that his creatinine is normal. 4. Disposition: Plan to discharge to home with some home health later today.
--- NOTE | 2018-06-23 08:10 | Discharge Summary ---
Date of Service June 30, 2018 Discharge Data Consultations 06/20/18 13:53 Consult Case Management - Discharge Planning Routine Procedures Performed Operation Date: 06/20/18 10:40 Actual Procedures p Left Total Knee Arthroplasty(Left) - Rm Madden MD
--- NOTE | 2018-06-25 16:33 | Discharge Summary ---
ADMITTING PHYSICIAN AND SURGEON: Dr. Rm Madden. ADMITTING DIAGNOSIS: Left knee degenerative joint disease. SURGERY PERFORMED: Left total knee arthroplasty. SECONDARY DIAGNOSES: Asthma, diabetes, arthritis, low back pain, sciatica, prostate cancer. CONSULTS: None obtained. HISTORY AND PHYSICAL EXAMINATION: Well documented in the patient's chart. HOSPITAL COURSE: The patient was admitted on 06/20/2018. Underwent total knee arthroplasty, tolerated the procedure well and there were no complications. He was transferred to the PACU postoperatively and later to the orthopedic for further care. He was given Ancef for antibiotic prophylaxis, RATNA stockings, SCDs and aspirin for DVT prophylaxis. Hemoglobin, hematocrit and vital signs were monitored during his hospital stay and remained stable, did not require any blood transfusions. There were no complications. By postoperative day 2, he was tolerating a diabetic diet. Pain was controlled with oral pain medicine. He was participating in physical therapy. Postop day 2, he was discharged home, set up with home health services. He was given printed discharge instructions including new prescriptions for extra strength Tylenol, aspirin, hydromorphone Continue his home medicines. Continue physical therapy, weightbearing as tolerated, RATNA stockings. Follow up approximately 2 weeks postoperatively or sooner if there are any problems or concerns.
== END 2018-06-22 10:39 | disposition home health service (06) | DRG 470 ==
LOC: ASU 08:11 → 3E 13:52